=== PATIENT | male | born 1960 ===

== ENCOUNTER 2019-07-27 20:42 | Emergency (ER) | payer SELFPAY ==
[2019-07-27] MEDS ORDERED: NS 0.9% 1000 ML** 1,000 ML IV ONE (21:21)
[2019-07-27] MEDS ORDERED: Morphine 4 MG/ML VIAL (1 ml) 4 MG/ML VIAL IV ONE ×2 (21:27→22:35)
[2019-07-27 21:41] LABS: ABS Basophils 0.1 10^3/ul (0-0.2); ABS Eosinophils 0.1 10^3/ul (0-0.6); ABS Lymphocytes 1.5 10^3/ul (1.0-4.8); ABS Monocytes 0.4 10^3/ul (0-0.8); ABS Neutrophils 4.9 10^3/ul (1.5-7.7); Eosinophil % 2.1 %; Hematocrit 44 % (42-52); Hemoglobin 15.3 g/dL (14.0-18.0); Lymphocyte % 21.9 %; Mean Corpuscular HGB Conc 35 g/dL (31-36); Mean Corpuscular Hemoglobin 32 pg (27-31); Mean Corpuscular Volume 93 fL (80-94); Mean Platelet Volume 7.1 fL (7.4-10.4); Platelet Count 190 10^3/uL (150-450); Red Blood Count 4.73 10^6 /uL (4.18-5.48); Red Cell Distribution Width 13 % (10-15)
[2019-07-27 21:57] LABS: Albumin 4.1 g/dL (3.2-5.2); BUN/Creatinine Ratio 14.3 (8-20); C Reactive Protein 1.3 mg/L (<8.01); Calcium 8.8 mg/dL (8.6-10.3); EGFR African American 66.6 (>60); Globulin 2.1 g/dL (2-4); Potassium 4.1 mmol/L (3.5-5.0); Total Bilirubin 0.3 mg/dL (0.2-1.0); Total Protein 6.2 g/dL (6.4-8.9)
[2019-07-27] MEDS ORDERED: Iohexol 300* (CONTRAST) 10 ML SDV IV ONE (22:16)
[2019-07-27] MEDS ORDERED: Iodixanol* (CONTRAST) 320 MG/ML 100 ML SDV IV ONE (22:29)
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
[2019-07-27 22:36] LABS: Urine Appearance Clear; Urine Bacteria Absent (Absent); Urine Bilirubin Negative (Negative); Urine Blood 1+ (Negative); Urine Color Straw; Urine Glucose Negative (Negative); Urine Ketones Negative (Negative); Urine Nitrite Negative (Negative); Urine Protein Negative (Negative); Urine Red Blood Cell Absent (Absent); Urine Specific Gravity 1.004 (1.010-1.030); Urine Urobilinogen Negative (Negative); Urine White Blood Cell Trace(0-5/hpf) (Absent)
[2019-07-28] MEDS ORDERED: Lidocaine 2% VISCOUS* 15 ML UDC PO ONE (00:08)
[2019-07-28] MEDS ORDERED: Al Hydrox/Mg Hydrox/Simet LIQ* 30 ML UDC PO ONE (00:08)
[2019-07-28] MEDS ORDERED: Pantoprazole TAB * 40 MG TAB PO ONE (00:11)
[2019-07-28 00:22] VITALS: BP 170/108
== END 2019-07-28 00:22 | disposition home or self-care (01) ==
LOC: ED 20:42
DX: K29.70 Gastritis, unspecified, without bleeding (principal); I10 Essential (primary) hypertension; F17.200 Nicotine dependence, unspecified, uncomplicated; Z79.899 Other long term (current) drug therapy; K76.0 Fatty (change of) liver, not elsewhere classified; N28.1 Cyst of kidney, acquired
CPT/HCPCS: 36415; 74177; 76705; 80053; 81003; 81015; 83605; 83690; 84484; 85025; 86140; 87086; 93005; 96361; 96374; 96376; 99283; A9270-GY; J2270; Q9967